=== PATIENT | female | born 1960 | race Caucasian/White ===

== ENCOUNTER 2017-08-04 21:21 | Emergency (ER) | payer OTHER ==
[2017-08-04 21:26] VITALS: TEMP 97.7
[2017-08-04] MEDS ORDERED: HALOPERIDOL LACT 5 MG/ML INJ IVP ONE (22:27)
[2017-08-04] MEDS ORDERED: DEXAMETHASONE 10 MG/ML VIAL IVP ONE (22:27)
[2017-08-04] MEDS ORDERED: NS 1,000 ML IV ONE (22:27)
--- NOTE | 2017-08-04 22:30 | EDPHY ---
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 Patient also has a history of cavernous a sinus disease and a seizure disorder. She began having this headache yesterday. It began as her usual headaches. [id number] medications have not been effective. She is not supposed to take nonsteroidals because of the anti- platelet properties. At worst headache was a 10/10 earlier this evening, it is now down to an 8/10. She has been using [id number] herbal medications and CBD. No nausea or vomiting. She does have photophobia and phonophobia. Is described as a generalized ache, primarily on the right-hand side. No fevers or chills. No cough. No neck pain or stiffness. This is entirely similar to her prior headaches for. She is presenting this evening because it is just not improving. ROS: 10 point Review of Systems is negative except as noted in the HPI. PMH: Cavernous sinus disease, chronic headaches, traumatic brain injury, seizure disorder Social History: No smoking, no alcohol, no recreational drug use Family History: non-contributory Physical Exam: Gen: Awake, Alert, No Distress HEENT: Nose: no rhinorrhea Eyes: PERRLA, EOMI Mouth: Moist mucosa Neck: Supple, no JVD Chest: nontender, lungs clear to auscultation Heart: S1, S2 normal, no murmur Abd: Soft, non-tender, no guarding Back: no CVA tenderness, no midline tenderness Ext: no edema, non-tender Skin: no rash Neuro: CN II-XII intact, Sensation grossly intact, Strength 5/5 in bilateral upper and lower extremities - Personal History Current Tetanus/Diphtheria Vaccine: Yes Current Tetanus Diphtheria and Acellular Pertussis (TDAP): Yes - Medical/Surgical History Hx Asthma: No Hx Chronic Respiratory Disease: No Hx Diabetes: No Hx Cardiac Disease: No Hx Renal Disease: No Hx Cirrhosis: No Hx Alcoholism: No Hx HIV/AIDS: No Hx Splenectomy or Spleen Trauma: No Other PMH: migraines cavernoma surg - Social History Smoking Status: Former smoker Constitutional: Initial Vital Signs Temperature (C) 36.5 C 08/04/17 21:23 Heart Rate 95 08/04/17 21:23 Respiratory Rate 16 08/04/17 21:23 Blood Pressure 121/90 H 08/04/17 21:23 O2 Sat (%) 95 08/04/17 21:23 O2 Delivery Mode Room Air Allergies/Adverse Reactions: acetaminophen [From Percocet] Allergy (Verified 08/04/17 21:26) oxycodone [From Percocet] Allergy (Verified 08/04/17 21:26) Medical Decision Making ED Course/Re-evaluation: 0015 patient is feeling much better after IV Haldol, Decadron and Benadryl. He has a 1/10. She has no red flags for acute intracranial bleed or infection. Is her typical headache. No nausea or vomiting. Will discharge with follow- up with her neurologist, return for any concerns. - Data Points Medications Given: Discontinued Medications Dexamethasone (Decadron Injection) 10 mg IVP EDNOW ONE Stop: 08/04/17 22:28 Last Admin: 08/04/17 23:04 Dose: 10 mg Diphenhydramine HCl (Benadryl Injection) 50 mg IVP EDNOW ONE Stop: 08/04/17 22:28 Last Admin: 08/04/17 23:04 Dose: 50 mg Haloperidol Lactate (Haldol Injection) 2.5 mg IVP EDNOW ONE Stop: 08/04/17 22:28 Last Admin: 08/04/17 23:04 Dose: 2.5 mg Sodium Chloride (Ns) 1,000 mls @ 0 mls/hr IV ONCE ONE; Wide Open PRN Reason: Protocol Stop: 08/04/17 22:28 Last Admin: 08/04/17 23:03 Dose: 1,000 mls Departure - Departure Disposition: Home, Routine, Self-Care Clinical Impression: Headache Condition: Good Instructions: Acute Headache (ED) Additional Instructions: Follow up with your neurologist in 3-4 days for further management of her chronic headaches. Return to the emergency department for worsening headache, nausea, vomiting, fevers, chills, or any other concerns. Referrals: HÉCTOR BERRIOS [Other] - As per Instructions
[2017-08-05 00:32] VITALS: BP 141/82; PULSE 88; RESP 18; O2SAT 92
== END 2017-08-05 00:32 | disposition home or self-care (01) ==
DX: R51 Headache (principal); E86.9 Volume depletion, unspecified; Z87.891 Personal history of nicotine dependence
CPT/HCPCS: 96374; J1100; J1200; J1630

== ENCOUNTER 2018-07-17 23:16 | Emergency (ER) | payer OTHER ==
[2018-07-18] MEDS ORDERED: HALOPERIDOL LACT 5 MG/ML INJ IVP ONE (00:16)
[2018-07-18] MEDS ORDERED: NS 1,000 ML IV ONE (00:16)
[2018-07-18] MEDS ORDERED: DEXAMETHASONE 4 MG/ML VIAL IVP ONE (00:16)
--- NOTE | 2018-07-18 00:26 | EDPHY ---
H & P Stated Complaint: CABRERA SINCE YESTERDAY, MEDS NOT WORKING Time Seen by Provider: 07/17/18 23:45 HPI/ROS: HPI The patient presents with headache which has been present since yesterday which started slowly which is bifrontal, throbbing, moderate in severity. She has been treating it with arnica and CBD oil without any improvement in her symptoms. She has history of headaches since traumatic brain injury, also has a history of cavernous sinus disease and seizures. She thinks over the last 2 days she over exerted herself traveling, not sleeping well, giving several presentations. Her headache is associated with nausea and photophobia. She last had a headache like this in July of this year was treated in the emergency department with good result after receiving IV fluids, dexamethasone, Benadryl, Haldol. REVIEW OF SYSTEMS 10 systems were reviewed and negative with the exception of the elements mentioned in the history of present illness. PMHx: Intermittent headaches related to traumatic brain injury, cavernous sinus disease, history of seizures Soc Hx: Here with her partner, offer of attacks tile book PHYSICAL General Appearance: Alert, no distress Eyes: Pupils equal and round no pallor or injection ENT, Mouth: Mucous membranes moist Respiratory: There are no retractions, lungs are clear to auscultation Cardiovascular: Regular rate and rhythm Gastrointestinal: Abdomen is soft and non-tender, no masses, bowel sounds normal Neurological: A&O, moves all extremities Skin: Warm and dry, no rashes Musculoskeletal: Neck is supple non tender Extremities: symmetrical, full range of motion Psychiatric: Patient is oriented X 3, there is no agitation Source: Patient Exam Limitations: No limitations - Personal History Current Tetanus Diphtheria and Acellular Pertussis (TDAP): Yes - Medical/Surgical History Hx Asthma: Yes Hx Chronic Respiratory Disease: No Hx Diabetes: No Hx Cardiac Disease: No Hx Renal Disease: No Hx Cirrhosis: No Hx Alcoholism: No Hx HIV/AIDS: No Hx Splenectomy or Spleen Trauma: No Other PMH: migraines, cavernoma surg, C-SECTIONS, BRAIN SURG X3,, ANKLE FX, ASTHMA - Social History Smoking Status: Former smoker Constitutional: Initial Vital Signs Temperature (C) 36.3 C 07/17/18 23:27 Heart Rate 77 07/17/18 23:27 Respiratory Rate 18 07/17/18 23:27 Blood Pressure 157/89 H 07/17/18 23:27 O2 Sat (%) 95 07/17/18 23:27 O2 Delivery Mode Room Air Allergies/Adverse Reactions: acetaminophen [From Percocet] Allergy (Verified 07/17/18 23:26) oxycodone [From Percocet] Allergy (Verified 07/17/18 23:26) Home Medications: Medication Instructions Recorded Celexa 07/17/18 Deplin 07/17/18 LaMICtal 07/17/18 Verapamil 07/17/18 Medical Decision Making Differential Diagnosis: 57-year-old female with history of headaches due to traumatic brain injury presents with 2 days of progressive bifrontal headache associated with nausea and photophobia. On exam, appears well. 1:00 a.m.- I was called into the patient's room for concern for absence onset seizure. Patient has a history of this and has seizures fairly regularly. I will give her a dose of Ativan to see if this helps. 2:00 a.m.- Patient was reassessed and is sleeping comfortably and feels well. She has had no further seizure activity. Her headache has improved significantly. I suspect recurrent headache as related to her underlying TBI. She would like to go home. I have written her up to go. Differential diagnosis includes migraine headache, tension type headache, less likely subarachnoid hemorrhage. - Data Points Medications Given: Discontinued Medications Dexamethasone (Decadron Injection) 8 mg IVP EDNOW ONE Stop: 07/18/18 00:17 Last Admin: 07/18/18 00:36 Dose: 8 mg Diphenhydramine HCl (Benadryl Injection) 50 mg IVP EDNOW ONE Stop: 07/18/18 00:23 Last Admin: 07/18/18 00:36 Dose: 50 mg Haloperidol Lactate (Haldol Injection) 2.5 mg IVP EDNOW ONE Stop: 07/18/18 00:17 Last Admin: 07/18/18 00:33 Dose: 2.5 mg Sodium Chloride (Ns) 1,000 mls @ 3,000 mls/hr IV EDNOW ONE Stop: 07/18/18 00:35 Last Admin: 07/18/18 00:36 Dose: 1,000 mls Lorazepam (Ativan Injection) 1 mg IVP EDNOW ONE Stop: 07/18/18 01:01 Last Admin: 07/18/18 01:03 Dose: 1 mg Departure - Departure Disposition: Home, Routine, Self-Care Clinical Impression: Headache Qualifiers: Headache type: unspecified Headache chronicity pattern: acute headache Intractability: not intractable Qualified Code(s): R51 - Headache Condition: Good Instructions: Acute Headache (ED) Additional Instructions: Please make sure to drink plenty of fluids. You should return to the ER if your worse in any way. Referrals: HÉCTOR BERRIOS [Other] - As per Instructions
[2018-07-18] MEDS ORDERED: MAGNESIUM SULF 1 GM/DEXTROSE 100 ML IV ONE (00:53)
[2018-07-18] MEDS ORDERED: METOCLOPRAMIDE 10 MG/2 ML VIAL IVP ONE (00:53)
[2018-07-18] MEDS ORDERED: LORazepam 2 MG/ML INJ IVP ONE (01:00)
[2018-07-18 03:20] VITALS: BP 153/67
== END 2018-07-18 03:20 | disposition home or self-care (01) ==
DX: R51 Headache (principal); E86.9 Volume depletion, unspecified; Z87.820 Personal history of traumatic brain injury; Z86.69 Personal history of other diseases of the nervous system and sense organs
CPT/HCPCS: 96374; J1100; J1200; J1630; J2060; J2765; J3475